=== PATIENT | male | born 1970 | race Caucasian/White ===

== ENCOUNTER 2021-06-20 14:30 | Emergency (ER) | payer BC ==
[~2021-06-20] VITALS: Ht 165.1 cm; Wt 98.9 kg
[2021-06-20 14:37] VITALS: BP 144/91
--- NOTE | 2021-06-20 14:41 | NUR ---
PT AMBULATED TO ER BED 6 WITH A STEADY GAIT.
--- NOTE | 2021-06-20 14:47 | NUR ---
50 Y/O MALE C/O CHEST PAIN 11/11 DESCRIBES CRUSHING NON-RADIATING X1DAY. DENIES FEVER/CHILLS. DENIES N/V/D. PMH: DM, HTN NKA
[2021-06-20] MEDS ORDERED: CLOPIDOGREL 75 MG TAB PO ONE (15:15)
[2021-06-20] MEDS ORDERED: ASPIRIN 325 MG TAB PO ONE (15:15)
--- NOTE | 2021-06-20 15:27 | NUR ---
PER ER MD PATIENT IS EXPERINCINE ACTUE PA AT THIS TIME PER EKG
--- NOTE | 2021-06-20 15:37 | NUR ---
SPOKE WITH MADI FROM [facility] AND WAS INFORMED NEED TO FAX OVER FACE SHEET AND H&P ON PATIENT.
[2021-06-20] MEDS ORDERED: NITROGLYCERIN 0.4 MG TAB SL ONE ×2 (15:45)
--- NOTE | 2021-06-20 15:46 | NUR ---
PLACED ON HOLD FOR REPORT TO CHARGE, RN IN [place], HUNG UP PHONE. WILL ATTEMPT TO CALL BACK.
--- NOTE | 2021-06-20 15:47 | NUR ---
[facility] TRANSPOR[facility] AT BEDSIDE
[2021-06-20 15:49] LABS: BASOPHILS # (AUTO) 0.1 K/uL (0.00-0.22); BASOPHILS % (AUTO) 0.9 % (0.0-2.0); EOSINOPHILS # (AUTO) 0.1 K/uL (0-0.4); EOSINOPHILS % (AUTO) 1.1 % (0.0-4.0); HEMATOCRIT 46.4 % (36-52); LYMPHOCYTES # (AUTO) 2.3 K/uL (2.0-11.5); LYMPHOCYTES % (AUTO) 19.6 % (20.5-51.1); MEAN CORPUSCULAR HEMOGLOBIN 30 pg (27-31); MEAN CORPUSCULAR HGB CONC 34 g/dL (33-37); MEAN CORPUSCULAR VOLUME 85.7 fL (80-94); MONOCYTES # (AUTO) 0.8 K/uL (0.8-1.0); NEUTROPHILS # (AUTO) 8.2 K/uL (1.8-7.7); NEUTROPHILS % (AUTO) 71.4 % (42.2-75.2); PLATELET COUNT (AUTO) 328 K/uL (140-450); RED BLOOD CELL COUNT(AUTO) 5.42 MIL/uL (4.20-6.10); RED CELL DISTRIBUTION WIDTH 13.3 % (11.6-13.7); WHITE BLOOD COUNT (AUTO) 11.5 K/uL (4.8-10.8)
--- NOTE | 2021-06-20 15:53 | NUR ---
PLACED ON HOLD FOR REPORT TO RADHA SCHULTE IN [place], HUNG UP PHONE. WILL ATTEMPT TO CALL BACK.
[2021-06-20 15:57] VITALS: BP 144/91
--- NOTE | 2021-06-20 15:57 | NUR ---
Patient to be transferred to [facility]. Is being transferred due to HIGHER LEVEL OF CARE. Receiving facility has accepting physician and available space. ER physician has signed transfer form. Patient or responsible constitution party has agreed to transfer and signed form. Patient belongings inventoried and will be sent with patient. Copy of nursing notes, lab reports, EKG, Physicians Orders and X-rays to be sent with patient. ATTTEMPTED TO CALL REPORT at receiving facility, PLACED ON HOLD FOR HEALTH AND SAFETY DIRECTOR THEN MICN NO ANSWER. [facility] ambulance service has been called for transfer. ETA is 7MINUTES.
[2021-06-20 16:20] LABS: PROTHROMBIN TIME 9.5 secs (10.8-13.4)
[2021-06-20 16:29] LABS: ALBUMIN 2.8 g/dL (3.4-5.0); ANION GAP 12.5 (8-16); CARBON DIOXIDE 28.2 mmol/L (21-32); CREATININE 1.1 mg/dL (0.6-1.3); POTASSIUM 4.7 mmol/L (3.5-5.1); TOTAL BILIRUBIN 0.4 mg/dL (0.0-1.0)
--- NOTE | 2021-06-20 16:40 | NUR ---
called [facility] [phone] to report critical lab value, spoke with estela for fax number [phone]. also spoke with dr. paredes for critical lab troponin [phone]. read back 06/20/21 1639, reports pt has been sent to production laborer at this time.
== END 2021-06-20 15:57 | disposition short-term general hospital (02) ==
LOC: MED 14:30
DX: I21.3 ST elevation (STEMI) myocardial infarction of unspecified site (principal); R07.89 Other chest pain; E11.9 Type 2 diabetes mellitus without complications; I10 Essential (primary) hypertension; F17.210 Nicotine dependence, cigarettes, uncomplicated; Z71.6 Tobacco abuse counseling
CPT/HCPCS: 36415; 71045; 80053; 84484; 85025; 85610; 93005; 99285; Q0092

== ENCOUNTER 2021-08-21 18:28 | Emergency (ER) | payer BC, OTHER ==
[~2021-08-21] VITALS: Ht 165.1 cm; Wt 91.6 kg
[2021-08-21 18:37] VITALS: BP 119/43
[2021-08-21] MEDS ORDERED: ALBUTEROL SULFATE/IPRATROPIU 3 ML SOL IH ONE (18:55)
--- NOTE | 2021-08-21 19:05 | NUR ---
50/M PRESENTS TO ED WITH C/O COUGH, CONGESTION AND FATIGUE X2 WEEKS. PATIENT STATES RECENT CONTACT WITH AN ILL COWORKER, STATING SYMPTOMS BEGAN SOON AFTER. REPORTS BEING SEEN AT URGENT CARE LAST TUESDAY AND GIVEN RX OF AMOXICILLIN AND PREDNISONE WITH NO RELIEF. PATIENT REPORTS A NEGATIVE COVID TEST ON TUESDAY. REPORTS 5/10 CHRONIC BACK PAIN THAT HAS WORSENED IN THE LAST TWO WEEKS. PATIENT HAS HX OF RECENT MO, DENIES CP, SOB, FEVERS OR CHILLS.
--- NOTE | 2021-08-21 19:15 | NUR ---
SENIOR SYSTEM OPERATOR BEDSIDE
--- NOTE | 2021-08-21 19:26 | NUR ---
Pt report given to ELVIA GARCIA. Transfer of care at this time.
[2021-08-21 19:29] LABS: BASOPHILS # (AUTO) 0.1 K/uL (0.00-0.22); BASOPHILS % (AUTO) 0.8 % (0.0-2.0); EOSINOPHILS # (AUTO) 0.4 K/uL (0-0.4); EOSINOPHILS % (AUTO) 3.4 % (0.0-4.0); HEMATOCRIT 47.6 % (36-52); HEMOGLOBIN 15.9 g/dL (12.0-18.0); LYMPHOCYTES % (AUTO) 31.1 % (20.5-51.1); MEAN CORPUSCULAR HEMOGLOBIN 27 pg (27-31); MEAN CORPUSCULAR HGB CONC 33 g/dL (33-37); MEAN CORPUSCULAR VOLUME 81.9 fL (80-94); MONOCYTES # (AUTO) 1.2 K/uL (0.8-1.0); MONOCYTES % (AUTO) 9.1 % (1.7-9.3); NEUTROPHILS # (AUTO) 7.2 K/uL (1.8-7.7); NEUTROPHILS % (AUTO) 55.6 % (42.2-75.2); PLATELET COUNT (AUTO) 426 K/uL (140-450); RED BLOOD CELL COUNT(AUTO) 5.81 MIL/uL (4.20-6.10); RED CELL DISTRIBUTION WIDTH 14.3 % (11.6-13.7)
[2021-08-21 19:41] LABS: ANION GAP 11.8 (8-16); CARBON DIOXIDE 28.3 mmol/L (21-32); CHLORIDE 98 mmol/L (98-107); CREATININE 1.2 mg/dL (0.6-1.3); GFR ARICAN-AMERICAN 82 mL/min (>90); GLUCOSE 97 mg/dL (74-106); POTASSIUM 4.1 mmol/L (3.5-5.1); SODIUM SERUM 134 mmol/L (136-145); UREA NITROGEN, BLOOD 26 mg/dL (7-18)
[2021-08-21 19:53] LABS: ALBUMIN 2.6 g/dL (3.4-5.0); ASPARTATE AMINOTRANSFERASE 59 U/L (15-37); TOTAL BILIRUBIN 0.3 mg/dL (0.0-1.0)
--- NOTE | 2021-08-21 19:55 | NUR ---
REPORT RECIEVED FROM KRISTIE
[2021-08-21] MEDS ORDERED: DEXAMETHASONE 10 MG/ML VIAL IM ONE (20:55)
--- NOTE | 2021-08-21 20:56 | NUR ---
Dr. Dawson at bedside to explain results and treatment plans.
[2021-08-21] MEDS ORDERED: PRON INH (20:57)
[2021-08-21] MEDS ORDERED: NEBU1KIT2 MC (20:57)
[2021-08-21 21:17] VITALS: BP 107/75
--- NOTE | 2021-08-21 21:18 | NUR ---
Patient discharged with v/s stable. Written and verbal after care instructions given and explained. Patient alert, oriented and verbalized understanding of instructions. Ambulatory with steady gait. All questions addressed prior to discharge. ID band removed. Patient advised to follow up with PMD. Rx of NEBULIZER AND ALBUTEROL SULFATE given. Patient educated on indication of medication including possible reaction and side effects. Opportunity to ask questions provided and answered.
== END 2021-08-21 21:20 | disposition home or self-care (01) ==
LOC: MED 18:28
DX: J40 Bronchitis, not specified as acute or chronic (principal); Z71.6 Tobacco abuse counseling; I25.2 Old myocardial infarction; E11.9 Type 2 diabetes mellitus without complications; I10 Essential (primary) hypertension; F17.200 Nicotine dependence, unspecified, uncomplicated; Z95.5 Presence of coronary angioplasty implant and graft; Z79.899 Other long term (current) drug therapy
CPT/HCPCS: 36415; 71045; 80053; 84484; 85025; 94640; 96372; 99284; J1100

== ENCOUNTER 2022-07-12 17:34 | Emergency (ER) | payer BC, OTHER ==
[~2022-07-12 17:34] MED LIST: NEBU1KIT2 MC; PRON INH
--- NOTE | 2022-07-12 18:00 | NUR ---
PT REPORTS "IM GOING TO [facility]". PATIENT LEFT WITHOUT BEING SEEN BY DR. BARBA. NO FURTHER CARE PROVIDED FOR PATIENT.
== END 2022-07-12 18:00 | disposition left against medical advice (07) ==
LOC: MED 17:34
DX: R53.83 Other fatigue (principal); Z53.21 Procedure and treatment not carried out due to patient leaving prior to being seen by health care provider